=== PATIENT | male | born 1990 | race Caucasian/White ===

== ENCOUNTER 2018-02-22 10:46 | Emergency (ER) | payer OTHER ==
[~2018-02-22] VITALS: Ht 182.9 cm; Wt 72.6 kg
[2018-02-22 11:07] VITALS: BP 118/49
[2018-02-22 11:18] LABS: BASOPHILS % (AUTO) 0.9 % (0.0-2.0); EOSINOPHILS % (AUTO) 0.5 % (0.0-3.0); HEMATOCRIT 40.7 % (42.0-52.0); HEMOGLOBIN 14.2 G/DL (14.2-18.0); LYMPHOCYTES % (AUTO) 24.7 % (20.0-45.0); MEAN CORPUSCULAR VOLUME 87 FL (80-99); MONOCYTES % (AUTO) 9.3 % (1.0-10.0); NEUTROPHILS % (AUTO) 64.6 % (45.0-75.0); PLATELET COUNT 188 K/UL (150-450); RED BLOOD COUNT 4.69 M/UL (4.70-6.10); RED CELL DISTRIBUTION WIDTH 10.3 % (11.6-14.8); WHITE BLOOD COUNT 8.5 K/UL (4.8-10.8)
[2018-02-22 11:42] LABS: ANION GAP 10 mmol/L (5-15); BLOOD UREA NITROGEN 16 mg/dL (7-18); CALCIUM 9.6 MG/DL (8.5-10.1); CARBON DIOXIDE 28 MMOL/L (21-32); CHLORIDE 102 MMOL/L (98-107); CREATININE 1.2 MG/DL (0.55-1.30); POTASSIUM 3.8 MMOL/L (3.5-5.1); SODIUM 140 MMOL/L (136-145)
[2018-02-22 11:52] LABS: ALANINE AMINOTRANSFERASE 28 U/L (12-78); ALBUMIN 4.5 G/DL (3.4-5.0); ALBUMIN/GLOBULIN RATIO 1.1 (1.0-2.7); ALKALINE PHOSPHATASE 102 U/L (46-116); ASPARTATE AMINO TRANSFERASE 32 U/L (15-37); BILIRUBIN,TOTAL 1.2 MG/DL (0.2-1.0)
[2018-02-22 11:54] LABS: BILIRUBIN,DIRECT 0.3 MG/DL (0.0-0.3)
[2018-02-22 14:24] VITALS: BP 118/58
--- NOTE | 2018-02-22 16:20 | Emergency Room Report ---
History of Present Illness General Chief Complaint: Altered Level of Consciousness Source: EMS Present Illness HPI Patient brought in for ALOC. He was in his car and was found with a white powder. EMS noted track davis. Initially extremely lethargic, then OX3 and GCS 15. Allegedly prior use of heroin and cocaine. Denied alcohol recently. Accucheck field 80. No evidence of trauma. Police report white powder and Xanax at scene. Patient not answering questions (lethargic). Allergies: Coded Allergies: No Known Allergies (Unverified , 02/22/18) Patient History Limited by: medical condition Past Medical History: see triage record Social History: Reports: smoking, alcohol use, drug use Social History Narrative was in his car (address in [place]) Reviewed Nursing Documentation: PMH: Agreed; PSxH: Agreed Review of Systems All Other Systems: limited Physical Exam Vital Signs Date Time Temp Pulse Resp B/P (MAP) Pulse Ox O2 Delivery O2 Flow Rate FiO2 02/22/18 10:44 98.1 73 16 104/70 100 98.1 02/22/18 11:07 Room Air Sp02 EP Interpretation: reviewed, normal General Appearance: no apparent distress, lethargic Head: normocephalic, atraumatic Eyes: bilateral eye PERRL, bilateral eye Scleral Injection ENT: moist mucus membranes - gag Neck: full range of motion, supple, no bony tend Respiratory: chest non-tender, lungs clear, other - adequate tidal volume Cardiovascular #1: normal peripheral pulses Cardiovascular #2: 2+ radial (R) Gastrointestinal: decreased bowel sounds Musculoskeletal: digits/nails normal, non-tender, other - no deformity Skin: normal color, other - tracks Medical Decision Making Diagnostic Impression: Primary Impression: Altered level of consciousness Additional Impression: Substance abuse ER Course Patient presents with ALOC with prior use of heroin and cocaine admitted. DDx: intentional OD, accidental OD (heroin/benzos), exhaustion, alcohol ingestion, electrolyte abnormality. Glucose normal in field. No evidence of head trauma and lungs clear with normal O2 sat. Imaging not indicated. Labs will be sent. IV hydration. Consider Narcan if bradypneic. EKG no injury. Labs significant for Urine + for cocaine, amphetamine, benzos. Alcohol = 10. With observation, patient more alert and able to stand. Patient denies intent to harm self, SI or HI. Denies other somatic complaints. Patient improved but still sleepy. Signed out to Dr. Tellez. Laboratory Tests Test 02/22/18 10:58 02/22/18 16:29 White Blood Count 8.5 K/UL (4.8-10.8) Red Blood Count 4.69 M/UL (4.70-6.10) L Hemoglobin 14.2 G/DL (14.2-18.0) Hematocrit 40.7 % (42.0-52.0) L Mean Corpuscular Volume 87 FL (80-99) Mean Corpuscular Hemoglobin 30.3 PG (27.0-31.0) Mean Corpuscular Hemoglobin Concent 34.9 G/DL (32.0-36.0) Red Cell Distribution Width 10.3 % (11.6-14.8) L Platelet Count 188 K/UL (150-450) Mean Platelet Volume 6.6 FL (6.5-10.1) Neutrophils (%) (Auto) 64.6 % (45.0-75.0) Lymphocytes (%) (Auto) 24.7 % (20.0-45.0) Monocytes (%) (Auto) 9.3 % (1.0-10.0) Eosinophils (%) (Auto) 0.5 % (0.0-3.0) Basophils (%) (Auto) 0.9 % (0.0-2.0) Sodium Level 140 MMOL/L (136-145) Potassium Level 3.8 MMOL/L (3.5-5.1) Chloride Level 102 MMOL/L (98-107) Carbon Dioxide Level 28 MMOL/L (21-32) Anion Gap 10 mmol/L (5-15) Blood Urea Nitrogen 16 mg/dL (7-18) Creatinine 1.2 MG/DL (0.55-1.30) Estimate Glomerular Filtration Rate > 60 mL/min (>60) Glucose Level 89 MG/DL (74-106) Calcium Level 9.6 MG/DL (8.5-10.1) Total Bilirubin 1.2 MG/DL (0.2-1.0) H Direct Bilirubin 0.3 MG/DL (0.0-0.3) Aspartate Amino Transferase (AST) 32 U/L (15-37) Alanine Aminotransferase (ALT) 28 U/L (12-78) Alkaline Phosphatase 102 U/L (46-116) Total Protein 8.5 G/DL (6.4-8.2) H Albumin 4.5 G/DL (3.4-5.0) Globulin 4.0 g/dL Albumin/Globulin Ratio 1.1 (1.0-2.7) Salicylates Level < 0.2 ug/mL (2.8-20) L Acetaminophen Level < 2 MCG/ML (10-30) L Serum Alcohol 10 mg/dL Urine Color Yellow Urine Appearance Clear Urine pH 6.5 (4.5-8.0) Urine Specific [place] 1.020 (1.005-1.035) Urine Protein 1+ (NEGATIVE) H Urine Glucose (UA) Negative (NEGATIVE) Urine Ketones 1+ (NEGATIVE) H Urine Occult Blood Negative (NEGATIVE) Urine Nitrite Negative (NEGATIVE) Urine Bilirubin Negative (NEGATIVE) Urine Urobilinogen 1 MG/DL (0.0-1.0) H Urine Leukocyte Esterase 1+ (NEGATIVE) H Urine RBC 0-2 /HPF (0 - 0) H Urine WBC 2-4 /HPF (0 - 0) Urine Squamous Epithelial Cells None /LPF (NONE/OCC) Urine Bacteria Few /HPF (NONE) Urine Opiates Screen Negative (NEGATIVE) Urine Barbiturates Screen Negative (NEGATIVE) Phencyclidine (PCP) Screen Negative (NEGATIVE) Urine Amphetamines Screen Positive (NEGATIVE) H Urine Benzodiazepines Screen Positive (NEGATIVE) H Urine Cocaine Screen Positive (NEGATIVE) H Urine Marijuana (THC) Screen Negative (NEGATIVE) EKG Diagnostic Results Rate: normal Rhythm: NSR ST Segments: no acute changes Rhythm Strip Diag. Results EP Interpretation: yes Rhythm: NSR, no PVC's, no ectopy Last Vital Signs Date Time Temp Pulse Resp B/P (MAP) Pulse Ox O2 Delivery O2 Flow Rate FiO2 02/22/18 16:51 98.1 81 16 118/58 100 Room Air 98.1 Status: improved Disposition: HOME, SELF-CARE Condition: Improved Referrals: NOT CHOSEN NATHAN/,REFERRING (PCP) Chico Hernandez M.D. Feb 22, 2018 16:20
[2018-02-22 16:34] LABS: APPEARANCE,URINE CLEAR; BILIRUBIN, URINE NEGATIVE (NEGATIVE); GLUCOSE, URINE (UA) NEGATIVE (NEGATIVE); KETONES,URINE 1+ (NEGATIVE); LEUKOCYTE ESTERASE ,URINE 1+ (NEGATIVE); NITRITE,URINE NEGATIVE (NEGATIVE); PH,URINE 6.5 (4.5-8.0); PROTEIN,URINE 1+ (NEGATIVE); UROBILINOGEN,URINE 1 MG/DL (0.0-1.0)
[2018-02-22 16:36] LABS: COLOR,URINE YELLOW
[2018-02-22 16:51] VITALS: BP 118/58
== END 2018-02-22 16:54 | disposition home or self-care (01) ==
LOC: EDBD 10:46 → EMR 11:25
DX: R41.82 Altered mental status, unspecified (principal); F14.10 Cocaine abuse, uncomplicated; F11.10 Opioid abuse, uncomplicated; F15.10 Other stimulant abuse, uncomplicated
CPT/HCPCS: 36415; 80053; 80307; 81003; 82248; 85025; 93005; 96360; 99283; G0480; 80329